=== PATIENT | male | born 1970 | race Hispanic/Latino ===

== ENCOUNTER 2019-08-25 03:47 | Emergency (ER) | payer SELFPAY ==
[~2019-08-25] VITALS: Ht 157.5 cm; Wt 86.3 kg
[2019-08-25] MEDS ORDERED: ZPAK PO (04:56)
[2019-08-25 05:04] VITALS: BP 131/83
== END 2019-08-25 05:20 | disposition home or self-care (01) | DRG 153 ==
LOC: ED 03:47
DX: J02.0 Streptococcal pharyngitis (principal); H10.9 Unspecified conjunctivitis

== ENCOUNTER 2020-11-17 12:54 | Emergency (ER) | payer SELFPAY ==
[~2020-11-17] VITALS: Ht 157.5 cm; Wt 85.0 kg
[~2020-11-17 12:54] MED LIST: ZPAK PO
[2020-11-17] MEDS ORDERED: ZPAK PO (14:10)
[2020-11-17 14:16] VITALS: BP 137/87
== END 2020-11-17 14:17 | disposition home or self-care (01) | DRG 153 ==
LOC: ED 12:54
DX: J06.9 Acute upper respiratory infection, unspecified (principal); Z20.822 Contact with and (suspected) exposure to COVID-19